=== PATIENT | female | born 1990 ===

== ENCOUNTER → 2019-06-23 | Outpatient (CLI) | payer OTHER | LOC: MHCPAIN 13:23 | DX: G89.29 Other chronic pain (principal); M54.16 Radiculopathy, lumbar region; M53.3 Sacrococcygeal disorders, not elsewhere classified | CPT/HCPCS: G0463 ==

== ENCOUNTER → 2019-07-15 | Outpatient (CLI) | payer OTHER | LOC: MHCPAIN 12:34 | DX: M79.18 Myalgia, other site (principal) | CPT/HCPCS: J1040 ==

== ENCOUNTER → 2019-08-20 | Outpatient (CLI) | payer OTHER | LOC: MHCPAIN 13:45 | DX: M47.817 Spondylosis without myelopathy or radiculopathy, lumbosacral region (principal); M54.16 Radiculopathy, lumbar region | CPT/HCPCS: G0463 ==